=== PATIENT | male | born 1985 | race Hispanic/Latino ===

== ENCOUNTER 2025-05-02 18:09 | Inpatient (IN) | payer OTHER ==
[~2025-05-02] VITALS: Ht 177.8 cm; Wt 101.6 kg
[2025-05-02 18:32] LABS: IMMATURE GRANULOCYTE ABSOLUTE 0.02 K/uL (0-1); NUCLEATED RED BLOOD CELLS 0.0 % (0.0-0.19); PLATELET COUNT (AUTO) 183 K/uL (130-400); RED BLOOD CELL COUNT(AUTO) 4.94 MIL/uL (4.50-6.20); RED CELL DISTRIBUTION WIDTH 11.5 % (11.0-15.5); WHITE BLOOD COUNT (AUTO) 11.7 K/uL (4.8-10.8)
[2025-05-02 18:42] LABS: CREATININE 0.9 mg/dL (0.5-1.3); GLOMERULAR FILTR. RATE CALC 113.0 mL/min (>90); GLUCOSE,RANDOM 108.0 mg/dL (70-105); SODIUM SERUM 137.0 mmol/L (136-145); UREA NITROGEN, BLOOD 14.0 mg/dL (7-18)
[2025-05-02 18:46] LABS: ASPARTATE AMINOTRANSFERASE 28.0 U/L (10-37); TOTAL PROTEIN, SERUM 7.8 g/dL (6.0-8.3)
--- NOTE | 2025-05-02 18:47 | ERN ---
ED Note History of Present Illness Stated Complaint: LOWER ABD PAIN Chief Complaint: Abdominal Pain Time Seen by MD: 18:10 Time Seen by Midlevel: 18:15 Dictation: 39-year-old male coming in complaining of severe lower abdominal pain. Patient states this has been going on today. States this morning he has been 2 hours trying to have a bowel movement and was in a excruciating pain. States last BM was this morning but had a very difficult time. Denies having any nausea or vomiting or fever. Allergies: Coded Allergies: Penicillins (Unverified Allergy, Unknown, 05/02/25) Past Medical History Past Medical History: No Pertinent History Surgical History: None Review of System Dictation Constitutional: Negative for fever,chills, and weight loss Eyes: Negative for injury, pain,redness, and discharge ENT: Negative for injury,pain or swelling Cardiovascular: Negative for chest pain, palpitations, and edema Respiratory: Negative for shortness of breath, cough, and wheezing, Abdomen/GI: Complaining of bilateral lower abdominal pain Back: Negative for injury and pain : Negative for injury, bleeding and discharge MS/Extremity: Negative for injury and deformity Skin: Negative for rash, and discoloration Neuro: Negative for headache, weakness, numbness, tingling, and seizure Psych: Negative for suicide ideation, homicidal ideation, and hallucinations Review of Systems: was completed Initial Vital Sign VS Vital Signs Date Time Temp Pulse Resp B/P (MAP) Pulse Ox O2 Delivery O2 Flow Rate FiO2 05/02/25 18:10 97.9 79 16 134/80 98 Room Air 0 Physical Exam Dictation General: awake, alert, NAD Head/Face: Normocephalic, atraumatic Eyes: PERRL, EOMI, vision at baseline ENT: oral cavity clear, TMs clear, no signs of infection Neck: Trachea midline, supple, no nuchal rigidity Cardiovascular: RRR, normal S1/S2, No MRGs, no JVD Respiratory: CTAB, no respiratory distress, No rales or wheezes Abdomen: Soft, tenderness to bilateral lower quadrant, non-distended, normal bowel sounds, no guarding or rebound. Skin: Warm, dry, normal turgor, no rash MS/Extremity: Pulses equal, no cyanosis, neurovascular intact, FROM Neuro: COAx4, GCS 15, strength 5/5, CN 2-12 intact, normal cerebellar exam, normal gait, Psych: Normal behavior, mood, and affect normal Results (Laboratory/Radiology) Laboratory/Radiology Laboratory Tests Test 05/02/25 18:24 White Blood Count 11.7 K/uL (4.8-10.8) H Red Blood Count 4.94 MIL/uL (4.50-6.20) Hemoglobin 15.9 g/dL (14.0-18.0) Hematocrit 45.1 % (42-54) Mean Corpuscular Volume 91.3 fL (79-99) Mean Corpuscular Hemoglobin 32.2 pg (27.0-33.0) Mean Corpuscular Hemoglobin Concent 35.3 g/dL (32.0-36.0) Red Cell Distribution Width 11.5 % (11.0-15.5) Platelet Count 183 K/uL (130-400) Mean Platelet Volume 11.0 fL (7.5-10.5) H Immature Granulocyte % (Auto) 0.2 % (0-1) Neutrophils (%) (Auto) 89.0 % (40.0-77.0) H Lymphocytes (%) (Auto) 4.6 % (21.0-51.0) L Monocytes (%) (Auto) 5.6 % (3.0-13.0) Eosinophils (%) (Auto) 0.3 % (0.0-8.0) Basophils (%) (Auto) 0.3 % (0.0-5.0) Neutrophils # (Auto) 10.4 K/uL (1.8-7.7) H Lymphocytes # (Auto) 0.5 K/uL (1.0-4.8) L Monocytes # (Auto) 0.7 K/uL (0.1-1.0) Eosinophils # (Auto) 0.04 K/uL (0.00-0.70) Basophils # (Auto) 0.03 K/uL (0.00-0.20) Absolute Immature Granulocyte (auto 0.02 K/uL (0-1) Nucleated Red Blood Cells 0.0 % (0.0-0.19) White Cell Morphology Comment See comments Sodium Level 137 mmol/L (136-145) Potassium Level 4.1 mmol/L (3.5-5.1) Chloride Level 101 mmol/L (101-111) Carbon Dioxide Level 26 mmol/L (21-32) Blood Urea Nitrogen 14 mg/dL (7-18) Creatinine 0.9 mg/dL (0.5-1.3) Glomerular Filtration Rate Calc 113 mL/min (>90) Random Glucose 108 mg/dL (70-105) H Total Calcium 9.2 mg/dL (8.5-10.1) Total Bilirubin 0.7 mg/dL (0.2-1.0) Direct Bilirubin 0.2 mg/dL (0.0-0.3) Aspartate Amino Transf (AST/SGOT) 28 U/L (10-37) Alanine Aminotransferase (ALT/SGPT) 44 U/L (12-78) Alkaline Phosphatase 61 U/L (50-136) Total Protein 7.8 g/dL (6.0-8.3) Albumin 4.2 g/dL (3.5-5.0) Lipase 16 U/L (16-77) Labs Reviewed?: Yes CT Scan Comment: [place] [id number] [address] IMAGING REPORT Addendum PATIENT: CHERI GOODWIN MR#: [id number] : 1985 SEX: M AGE: 39 LOCATION: [facility] ORDER 17 STATUS: [facility] REPORT#: [id number] SERVICE 13 REASON: lower abdominal pain ORDERING PHYSICIAN: AGUSTIN LEACH CNP PROCEDURE: ABD PEL WO - CT ABDOMEN/PELVIS W/O CONTRAST ADDENDUM REPORT ADDENDUM: Results were shared by telephone at 08:52 PM EST on 05-02-2025 and acknowledged by Agustin Almonte /[place] EXAM: CT Abdomen and Pelvis Without IV contrast CLINICAL HISTORY: lower abdominal pain TECHNIQUE: Axial computed tomography images of the abdomen and pelvis without intravenous contrast. CONTRAST: No IV contrast. COMPARISON: None provided. FINDINGS: LUNG BASES: The lung bases appear clear. No pleural effusions are seen. LIVER: Unremarkable. GALLBLADDER AND BILE DUCTS: The gallbladder appears within normal limits. No radioopaque gallstones are seen. No biliary ductal dilatation is evident. PANCREAS: Unremarkable. SPLEEN: Unremarkable. ADRENAL GLANDS: Unremarkable. KIDNEYS, URETERS, AND BLADDER: The kidneys appear within normal limits. There is no hydronephrosis or hydroureter. No urinary calculi are seen. STOMACH AND BOWEL: Unremarkable appearance of the stomach and bowel. No evidence of bowel obstruction. No evidence suggesting enteritis or colitis. APPENDIX: The appendix is distended, measuring up to 1 cm, with wall thickening and moderate periappendiceal inflammatory changes. No collection or perforation. PERITONEUM: Trace amount of fluid in the pelvis. No free air. LYMPH NODES: No lymphadenopathy is evident. REPRODUCTIVE: Unremarkable as visualized. VASCULATURE: No evidence of abdominal aortic aneurysm. BONES: No aggressive appearing osseous lesion. No acute osseous pathology evident. IMPRESSION: Acute appendicitis. No collection or perforation. /[place] DICTATED BY: JANES GRSOS MD DATE: 05/02/252052 ELECTRONICALLY SIGNED BY: DATE: EXAM: CT Abdomen and Pelvis Without IV contrast CLINICAL HISTORY: lower abdominal pain TECHNIQUE: Axial computed tomography images of the abdomen and pelvis without intravenous contrast. CONTRAST: No IV contrast. COMPARISON: None provided. FINDINGS: LUNG BASES: The lung bases appear clear. No pleural effusions are seen. LIVER: Unremarkable. GALLBLADDER AND BILE DUCTS: The gallbladder appears within normal limits. No radioopaque gallstones are seen. No biliary ductal dilatation is evident. PANCREAS: Unremarkable. SPLEEN: Unremarkable. ADRENAL GLANDS: Unremarkable. KIDNEYS, URETERS, AND BLADDER: The kidneys appear within normal limits. There is no hydronephrosis or hydroureter. No urinary calculi are seen. STOMACH AND BOWEL: Unremarkable appearance of the stomach and bowel. No evidence of bowel obstruction. No evidence suggesting enteritis or colitis. APPENDIX: The appendix is distended, measuring up to 1 cm, with wall thickening and moderate periappendiceal inflammatory changes. No collection or perforation. PERITONEUM: Trace amount of fluid in the pelvis. No free air. LYMPH NODES: No lymphadenopathy is evident. REPRODUCTIVE: Unremarkable as visualized. VASCULATURE: No evidence of abdominal aortic aneurysm. BONES: No aggressive appearing osseous lesion. No acute osseous pathology evident. IMPRESSION: Acute appendicitis. No collection or perforation. /[place] DICTATED BY: JANES GROSS MD DATE: 05/02/252040 ELECTRONICALLY SIGNED BY: JANES GROSS MD DATE: 05/02/252040 ED Course ED Course Orders Procedure Category Date Status Time Cbc With Differential LAB 05/02/25 Complete 18:14 Basic Metabolic Panel LAB 05/02/25 Complete 18:14 Urinalysis Profile LAB 05/02/25 Logged 18:14 Hepatic Function Panel LAB 05/02/25 Complete 18:14 Lipase LAB 05/02/25 Complete 18:14 Ct Abdomen/Pelvis W/O CT 05/02/25 Resulted Contrast 18:14 Dicyclomine Hcl PHA 05/02/25 Complete (Bentyl 20mg Inj) 19:00 Ceftriaxone 2gm Vial PHA 05/02/25 Complete (Rocephin 2gm Inj) 20:00 General Surgery CONPHYS 05/02/25 Transmitted Consult 19:56 *Nursing CPOE 05/02/25 Transmitted Communication: 19:56 Nothing By Mouth DIET 05/03/25 Transmitted Breakfast 0.9%Nacl 1000ml (Ns PHA 05/02/25 In Process 1000ml) 19:59 Levofloxacin 500 PHA 05/02/25 In Process Mg/D5w 100 Ml 20:01 Morphine 4mg Syg PHA 05/02/25 Logged (Morphine 4mg Syg) 20:30 Ondansetron 4mg Inj PHA 05/02/25 Logged (Zofran 4mg Inj) 20:30 Admit Orders ADM 05/02/25 Transmitted 20:27 General Surgery CONPHYSVC 05/02/25 Transmitted Consult 20:27 Current Medications Medications (Trade) Dose Ordered Sig/Des Route PRN Reason Start Time Stop Time Status Last Admin Dose Admin Ceftriaxone Sodium (Rocephin 2gm Inj) 2 gm ONCE ONCE IVPB 05/02/25 20:00 05/02/25 20:02 DC Dicyclomine HCl (Bentyl 20mg Inj) 20 mg ONCE ONCE IM 05/02/25 19:00 05/02/25 19:01 DC Levofloxacin/ Dextrose 100 ml @ 100 mls/hr Q24H STAT IV 05/02/25 20:01 05/02/25 21:00 Morphine Sulfate (morPHINE 4MG SYG) 4 mg ONCE ONCE IVP 05/02/25 20:30 05/02/25 20:31 UNV Ondansetron HCl (zoFRAN 4MG INJ) 4 mg ONCE ONCE IVP 05/02/25 20:30 05/02/25 20:31 UNV Sodium Chloride 1,000 ml @ 100 mls/hr Q10H STAT IV 05/02/25 19:59 05/03/25 05:58 Vital Signs Date Time Temp Pulse Resp B/P (MAP) Pulse Ox O2 Delivery O2 Flow Rate FiO2 05/02/25 18:10 97.9 79 16 134/80 98 Room Air 0 Medical Decision Making MDM MDM: 39-year-old male coming in complaining of severe lower abdominal pain. Patient states this has started today. States this morning he has been 2 hours trying to have a bowel movement and was in a excruciating pain. States last BM was this morning but had a very difficult time. Denies having any nausea or vomiting or fever. Blood work is unremarkable. CT scan is showing acute appendicitis. General surgeon on-call notified, okay to consult, keep patient NPO and obtain consent for laparoscopic versus open appendectomy for tomorrow. Patient will be admitted to hospitalist team. 2000 Patient called multiple times out in the lobby to bring back for a room and IV and antibiotics. And no answer. Called patient's cell phone 3 times , no answer,i left a voicemail. Primary nurse also tried contacting patient and no answer States he had gone out for a walk and return to the ER lobby. Spoke to Samuel for hospitalist team. Okay to admit patient. Differential diagnosis: Constipation, appendicitis, urinary tract infection Rationale: Tests considered and ordered secondary to shared decision making include: labs, ECG and radiology Previous outside records reviewed: Old ER visits. Risk of complication and/or morbidity or mortality of patient management: None Medications-Per medication reconciliation Need for hospitalization: Patient does meet criteria for hospitalization. Need for emergency major/minor surgery: No There are no social concerns with this patient. Prescription drug management Prescriptions will include symptomatic care Patient's prior external medical records from other ER visits were reviewed by me as indicated. Prior testing and results from previous visits were reviewed. Prior tests were taken into account with medical decision making and resource utilization, independent historian/historians were used to obtain complete medical history. I independently interpreted the test that were performed, results were reviewed by me and considered findings on radiology if ordered. Medical management and examination interpretation discussions were had by me with other qualified healthcare professionals as indicated for the patient's care. DX & DISP Disposition: Inpatient Decision to Admit Date: May 02, 2025 Decision to Admit Time: 19:59 Departure Impression: Primary Impression: Appendicitis Condition: Stable I have reviewed the case, and I agree with, Diagnosis and Plan AGUSTIN LEACH CNP May 02, 2025 18:47
--- NOTE | 2025-05-02 19:41 | HMCIMG ---
EXAM: CT Abdomen and Pelvis Without IV contrast CLINICAL HISTORY: lower abdominal pain TECHNIQUE: Axial computed tomography images of the abdomen and pelvis without intravenous contrast. CONTRAST: No IV contrast. COMPARISON: None provided. FINDINGS: LUNG BASES: The lung bases appear clear. No pleural effusions are seen. LIVER: Unremarkable. GALLBLADDER AND BILE DUCTS: The gallbladder appears within normal limits. No radioopaque gallstones are seen. No biliary ductal dilatation is evident. PANCREAS: Unremarkable. SPLEEN: Unremarkable. ADRENAL GLANDS: Unremarkable. KIDNEYS, URETERS, AND BLADDER: The kidneys appear within normal limits. There is no hydronephrosis or hydroureter. No urinary calculi are seen. STOMACH AND BOWEL: Unremarkable appearance of the stomach and bowel. No evidence of bowel obstruction. No evidence suggesting enteritis or colitis. APPENDIX: The appendix is distended, measuring up to 1 cm, with wall thickening and moderate periappendiceal inflammatory changes. No collection or perforation. PERITONEUM: Trace amount of fluid in the pelvis. No free air. LYMPH NODES: No lymphadenopathy is evident. REPRODUCTIVE: Unremarkable as visualized. VASCULATURE: No evidence of abdominal aortic aneurysm. BONES: No aggressive appearing osseous lesion. No acute osseous pathology evident. IMPRESSION: Acute appendicitis. No collection or perforation. /[place]
--- NOTE | 2025-05-02 20:04 | NUR ---
CALLED IN ER LOBBY, NOT FOUND
--- NOTE | 2025-05-02 20:28 | HP ---
History of Present Illness Reason for Visit: abdominal pain History of Present Illness Mr. Saldaña is a 39-year-old male that was seen and examined today on 05/02/2025. Patient is a good historian of personal health Patient reports that he came to the emergency department with a chief complaint of abdominal pain. Onset was today. Location is right lower quadrant. Duration is on and off. Character is described as sharp. There was no alleviating factors. Symptoms are aggravated with defecation. Patient denies any associated nausea, vomiting, chest pain, shortness and breath. Today in the emergency department CBC unremarkable, chemistry unremarkable, CT of abdomen and pelvis suggest appendicitis. Emergency room physician contacted general surgery service on-call who requested patient be admitted under hospitalist service. Plan is for surgical evaluation Past Medical History ADDITIONAL PAST MEDICAL HISTORY: [Hypertension] SOCIAL HISTORY: [Patient does not use tobacco however he does use a nicotine vape and each vape lasts him one week. Patient drinks alcohol once a week usually eight beers every 12 hours each. Patient denies drug use. Patient lives with his , Dipika Vega. Patient is typically independent of all his ADLs. Patient denies difficulty pain is bills.] SURGICAL HISTORY: [Denies] Review of Systems General: No Fever, No Chills, No Night Sweats, No Fatigue, No Malaise, No Appetite, No Other HEENT: No Head Aches, No Visual Changes, No Eye Pain, No Ear Pain, No Dysphasia, No Sinus Congestion, No Post Nasal Drip, No Sore Throat, No Other Pulmonary: No Dyspnea, No Cough, No Pleuritic Chest Pain, No Other Cardiovascular: No: Chest Pain, Palpitations, Orthopnea, Paroxysmal Noc. Dyspnea, Edema, Lt Headedness, Other Gastrointestinal: Abdominal Pain; No: Nausea, Vomiting, Diarrhea, Constipation, Melena, Hematochezia, Other Genitourinary: No Dysuria, No Frequency, No Incontinence, No Hematuria, No Retention, No Other Musculoskeletal: No: other, neck pain, shoulder pain, arm pain, back pain, hand pain, leg pain, foot pain Skin: No Urticaria, No Rash, No Other Neurological: No: Weakness, Numbness, Incoordination, Change in speech, Confusion, Seizures, Other Allergies: Coded Allergies: Penicillins (Unverified Allergy, Unknown, 05/02/25) Exam Vital Signs Vital Signs Date Time Temp Pulse Resp B/P (MAP) Pulse Ox O2 Delivery O2 Flow Rate FiO2 05/02/25 18:10 97.9 79 16 134/80 98 Room Air 0 General Appearance: Alert, Oriented X3, Cooperative, mild distress HEENT: Atraumatic, EOMI Respiratory: Clear to auscultation, Normal air movement, NL respiratory effort Cardiovascular: Regular rate, Regular rhythm, Normal S1, Normal S2 Abdominal: Normal bowel sounds, Other (Positive right lower quadrant tenderness) Extremities: No edema Skin: No significant lesion Neuro: Normal gait, Normal speech, Strength at 5/5 X4 ext, Sensation intact, Cranial nerves 3-12 NL Psych/Mental Status: Mental status NL, Mood NL, Thoughts/Content NL Assessment/Plan ASSESSMENT: [ Appendicitis, POA] PLAN: [ Admit patient to medical floor as inpatient status. Patient will be followed by General surgery Service. Keep patient NPO. IV fluid maintenance therapy lactated Ringer's at 75 mL/HR. As needed analgesia with morphine. Check preprocedure labs, CBC, BMP, magnesium, phosphorus, PTT, UA, type and screen, EKG, CXR Empiric antibiotic therapy with Levaquin and Flagyl Patient is allergic to penicillin GI prophylaxis, famotidine DVT prophylaxis, Orestes's and SCDs avoid anticoagulation at this time due to impending surgical evaluation. ADVANCED CARE PLANNING 1. Which of the following were discussed? Hospice Care - Yes Therapeutic options - yes Advance Directives - Yes - patient states he does not have any advance directives in place at this time, however his can make decisions for him if he becomes unable. Other discussions - patient wishes to remain a full code at this time 2. Discussed with who? Patient 3. Voluntary nature of this service was explained to the patient? Yes 4. Amount of time spent - ___16 minutes____ 5. Reviewed by Physician? (if this service was performed by NPP) Yes This document was generated in part using voice recognition software, occasional wrong word or sound alike substitutions may have occurred due to the inherent limitations of voice recognition software. Read the chart carefully and recogn ize using context, where the substitutions have occurred. Although every effort was made to edit the content, booster pump oiler and typing errors may occur ATTESTATION BY PHYSICIAN I have seen and examined the patient. I reviewed the documentation, medical d ecision making, and treatment plan as noted by the mid-level provider above. I agree with the findings and plan of care. ] ALANA MUÑOZ [facility] [place] May 02, 2025 20:28
[2025-05-02] MEDS: 0.9%NACL 1000ML 1,000 ML IV STA (20:59)
[2025-05-02] MEDS: DICYCLOMINE 20MG (10MG/ML) AMP IM ONE (20:59)
[2025-05-02 21:38] LABS: APPEARANCE,URINE CLEAR (CLEAR); GLUCOSE, URINE (UA) NEGATIVE (NEGATIVE); LEUKOCYTE ESTERASE ,URINE NEGATIVE Leu/uL (NEGATIVE); NITRATE,URINE NEGATIVE (NEGATIVE); OCCULT BLOOD,URINE NEGATIVE (NEGATIVE)
[2025-05-02 21:40] LABS: ADD UA MICROSCOPIC NO
[2025-05-02] MEDS ORDERED: LACTULOSE 20 GM/30 ML UDCUP PO PRN (22:00)
[2025-05-02] MEDS: LACTATED RINGERS 1000ML 1,000 ML IV SCH (23:23)
[2025-05-03] VITALS (25 sets, daily range): BP systolic 122–165; BP diastolic 70–102; PULSE 63–95; RESP 14–18; TEMP 97–208.4; O2SAT 96–97
[2025-05-03 07:02] LABS: IMMATURE GRANULOCYTE ABSOLUTE 0.02 K/uL (0-1); NUCLEATED RED BLOOD CELLS 0.0 % (0.0-0.19); PLATELET COUNT (AUTO) 173 K/uL (130-400); RED BLOOD CELL COUNT(AUTO) 4.75 MIL/uL (4.50-6.20); RED CELL DISTRIBUTION WIDTH 11.6 % (11.0-15.5); WHITE BLOOD COUNT (AUTO) 8.5 K/uL (4.8-10.8)
[2025-05-03 07:15] LABS: INR 1.06 (0.85-1.15)
--- NOTE | 2025-05-03 07:17 | EKG ---
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
[2025-05-03 07:21] LABS: CREATININE 1.1 mg/dL (0.5-1.3); GLOMERULAR FILTR. RATE CALC 89.0 mL/min (>90); GLUCOSE,RANDOM 107.0 mg/dL (70-105); PHOSPHORUS 2.7 mg/dL (2.5-4.9); SODIUM SERUM 138.0 mmol/L (136-145); UREA NITROGEN, BLOOD 9.0 mg/dL (7-18)
[2025-05-03] MEDS: FAMOTIDINE 20MG VIAL IV SCH (09:01)
--- NOTE | 2025-05-03 12:18 | NUR ---
DCP:HOME Pt states that he currently lives alone in his home. Pt denies having any DME, home health, or provider services. Pt states that he is able to complete ADLs independently. PCP is Dr. Frederick Michaud (yellow team) and uses the [facility] for any RX needs. At DC pt will want to go home and family can assist with transportation.
[2025-05-03] MEDS ORDERED: LIDOCAINE PF 100MG/5ML (2%) SYRINGE 5ML ONE (13:31)
[2025-05-03] MEDS ORDERED: MIDAZOLAM HCL 1 MG/ML 2ML VIAL ONE (13:31)
[2025-05-03] MEDS ORDERED: SUCCINYLCHOLINE CHLORIDE 20 MG/ML 10 ML VIAL ONE (13:35)
[2025-05-03] MEDS: LACTATED RINGERS 1000ML 1,000 ML IV ONE (13:51)
--- NOTE | 2025-05-03 14:18 | CONS ---
GENERAL SURGERY CONSULTATION NOTE Date/Time Patient Seen: 05/03/2025 1:00 p.m. Requesting Physician: Hospitalist Reason for Consultation: Acute appendicitis History of Present Illness: This is a 39-year-old male otherwise healthy who presented to the emergency department for lower abdominal pain that began yesterday morning. Patient reports he has never had similar pain. The pain was severe. He had associated nausea but no vomiting. No fevers chills or diarrhea. Pain was persistent and located in the right lower quadrant. In the ED the patient was afebrile and hemodynamically stable. He had a slight leukocytosis. CT scan of the abdomen and pelvis showed an enlarged and indurated appendix with evidence of periappendiceal fat stranding consistent with acute appendicitis. The patient was admitted to the hospitalist service and started on IV antibiotics. Surgery was consulted for acute appendicitis. At the time of my interview patient reports that symptoms have not changed. Pain persists in his located in the right lower quadrant. Past Medical History: None Past Surgical History: None Family History: None Social History: Nonsmoker Nondrinker Current Medications Medications (Trade) Dose Ordered Sig/Des Route Start Time Stop Time Status Last Admin Dose Admin Famotidine (Pepcid 20mg Vial) 20 mg DAILY IV 05/03/25 09:00 06/02/25 08:59 05/03/25 09:01 20 MG Lactated Ringer's 1,000 ml @ 75 mls/hr [id number] IV 05/02/25 22:00 06/01/25 21:59 05/02/25 23:23 75 MLS/HR Levofloxacin/ Dextrose 100 ml @ 100 mls/hr Q24H STAT IV 05/02/25 20:01 05/02/25 21:00 DC 05/02/25 20:59 100 MLS/HR Levofloxacin/ Dextrose (LEvaquIN 750 MG/ D5W 150 ML) 750 mg Q24H IV 05/02/25 22:00 05/02/25 23:27 DC Levofloxacin/ Dextrose (LEvaquIN 750 MG/ D5W 150 ML) 750 mg Q24H IV 05/03/25 20:00 05/13/25 19:59 Metronidazole/ Sodium Chloride 100 ml @ 100 mls/hr Q8H6 IVPB 05/02/25 22:00 05/12/25 21:59 05/03/25 05:15 100 MLS/HR Sodium Chloride 1,000 ml @ 100 mls/hr Q10H STAT IV 05/02/25 19:59 05/03/25 05:58 DC 05/02/25 20:59 100 MLS/HR Review of Systems: CONST: No fever, fatigue, or weight changes. EYES: No recent vision problems. ENT: No congestion, ear pain, or sore throat. C/V: No chest pain, palpitations, or edema. RESP: No cough, congestion, wheezing or shortness of breath. GI: Positive for abdominal pain and nausea. Negative for vomiting, constipation, and diarrhea : No incontinence or dysuria. SKIN: No rash. NEURO: No headache, focal numbness or weakness, dizziness, or seizures. PSYCH: No depression or anxiety. HEME: No abnormal bruising or bleeding. LYMPH: No swollen glands. Physical Examination: GENERAL: No acute distress. HEAD: Normal with no signs of head trauma. EYES: PERRLA, EOMI, conjunctiva and sclera normal. LUNGS: Respirations nonlabored HEART: Regular rate and rhyth ABD: Soft, nondistended, focally tender to palpation in the right lower quadrant, no rebound, no guarding : Not examined LYMPH: No lymphadenopathy noted. EXT: No clubbing, cyanosis or edema. SKIN: No rashes or lesions noted. NEURO: Awake, alert, and oriented x3. No focal sensory or strength deficits noted. Vital Signs (last 8hr) Date Time Temp Pulse Resp B/P (MAP) Pulse Ox O2 Delivery O2 Flow Rate FiO2 05/03/25 13:45 208.4 72 17 133/82 96 Room Air 0.0 05/03/25 12:00 98.1 72 17 133/82 96 Room Air 05/03/25 08:00 98.1 70 17 126/75 96 Room Air Laboratory: Hematology Labs: Test 05/03/25 06:55 05/02/25 18:24 Range/Units White Blood Count 8.5 # 4.8-10.8 K/uL Red Blood Count 4.75 4.50-6.20 MIL/uL Hemoglobin 15.2 14.0-18.0 g/dL Hematocrit 43.2 42-54 % Mean Corpuscular Volume 90.9 79-99 fL Mean Corpuscular Hemoglobin 32.0 27.0-33.0 pg Mean Corpuscular Hemoglobin Concent 35.2 32.0-36.0 g/dL Red Cell Distribution Width 11.6 11.0-15.5 % Platelet Count 173 130-400 K/uL Mean Platelet Volume 11.2 H 7.5-10.5 fL Immature Granulocyte % (Auto) 0.2 0-1 % Neutrophils (%) (Auto) 79.1 H 40.0-77.0 % Lymphocytes (%) (Auto) 12.7 L 21.0-51.0 % Monocytes (%) (Auto) 7.2 3.0-13.0 % Eosinophils (%) (Auto) 0.6 0.0-8.0 % Basophils (%) (Auto) 0.2 0.0-5.0 % Neutrophils # (Auto) 6.7 1.8-7.7 K/uL Lymphocytes # (Auto) 1.1 1.0-4.8 K/uL Monocytes # (Auto) 0.6 0.1-1.0 K/uL Eosinophils # (Auto) 0.05 0.00-0.70 K/uL Basophils # (Auto) 0.02 0.00-0.20 K/uL Absolute Immature Granulocyte (auto 0.02 0-1 K/uL Nucleated Red Blood Cells 0.0 0.0-0.19 % White Cell Morphology Comment See comments Chemistry Labs: Test 05/03/25 06:55 05/02/25 18:24 Range/Units Sodium Level 138 136-145 mmol/L Potassium Level 3.7 3.5-5.1 mmol/L Chloride Level 101 101-111 mmol/L Carbon Dioxide Level 31 21-32 mmol/L Blood Urea Nitrogen 9 7-18 mg/dL Creatinine 1.1 0.5-1.3 mg/dL Glomerular Filtration Rate Calc 89 >90 mL/min Random Glucose 107 H 70-105 mg/dL Hemoglobin A1c 5.0 4.0-6.0 % Estimated Average Glucose (eAG) 97 70-126 mg/dL Total Calcium 8.9 8.5-10.1 mg/dL Phosphorus Level 2.7 2.5-4.9 mg/dL Magnesium Level 1.80 1.80-2.40 mg/dL Thyroid Stimulating Hormone (TSH) 4.26 H 0.36-3.74 uIU/mL Total Bilirubin 0.7 0.2-1.0 mg/dL Direct Bilirubin 0.2 0.0-0.3 mg/dL Aspartate Amino Transf (AST/SGOT) 28 10-37 U/L Alanine Aminotransferase (ALT/SGPT) 44 12-78 U/L Alkaline Phosphatase 61 50-136 U/L Total Protein 7.8 6.0-8.3 g/dL Albumin 4.2 3.5-5.0 g/dL Lipase 16 16-77 U/L Coagulation Labs: Test 05/03/25 06:55 Range/Units Prothrombin Time 11.2 9.6-11.6 SEC Prothromb Time International Ratio 1.06 0.85-1.15 Activated Partial Thromboplast Time 28.6 26.3-35.5 SEC Diagnostics / Radiology: PATIENT: CHERI GOODWIN MR#: [id number] : 1985 SEX: M AGE: 39 LOCATION: [facility] ORDER 17 STATUS: [facility] REPORT#: [id number] SERVICE 13 REASON: lower abdominal pain ORDERING PHYSICIAN: AGUSTIN LEACH CNP PROCEDURE: ABD PEL WO - CT ABDOMEN/PELVIS W/O CONTRAST ADDENDUM REPORT ADDENDUM: Results were shared by telephone at 08:52 PM EST on 05-02-2025 and acknowledged by Agustin Almonte /[facility] EXAM: CT Abdomen and Pelvis Without IV contrast CLINICAL HISTORY: lower abdominal pain TECHNIQUE: Axial computed tomography images of the abdomen and pelvis without intravenous contrast. CONTRAST: No IV contrast. COMPARISON: None provided. FINDINGS: LUNG BASES: The lung bases appear clear. No pleural effusions are seen. LIVER: Unremarkable. GALLBLADDER AND BILE DUCTS: The gallbladder appears within normal limits. No radioopaque gallstones are seen. No biliary ductal dilatation is evident. PANCREAS: Unremarkable. SPLEEN: Unremarkable. ADRENAL GLANDS: Unremarkable. KIDNEYS, URETERS, AND BLADDER: The kidneys appear within normal limits. There is no hydronephrosis or hydroureter. No urinary calculi are seen. STOMACH AND BOWEL: Unremarkable appearance of the stomach and bowel. No evidence of bowel obstruction. No evidence suggesting enteritis or colitis. APPENDIX: The appendix is distended, measuring up to 1 cm, with wall thickening and moderate periappendiceal inflammatory changes. No collection or perforation. PERITONEUM: Trace amount of fluid in the pelvis. No free air. LYMPH NODES: No lymphadenopathy is evident. REPRODUCTIVE: Unremarkable as visualized. VASCULATURE: No evidence of abdominal aortic aneurysm. BONES: No aggressive appearing osseous lesion. No acute osseous pathology evident. IMPRESSION: Acute appendicitis. No collection or perforation. /[facility] DICTATED BY: JANES GROSS MD DATE: 05/02/252052 ELECTRONICALLY SIGNED BY: DATE: EXAM: CT Abdomen and Pelvis Without IV contrast CLINICAL HISTORY: lower abdominal pain TECHNIQUE: Axial computed tomography images of the abdomen and pelvis without intravenous contrast. CONTRAST: No IV contrast. COMPARISON: None provided. FINDINGS: LUNG BASES: The lung bases appear clear. No pleural effusions are seen. LIVER: Unremarkable. GALLBLADDER AND BILE DUCTS: The gallbladder appears within normal limits. No radioopaque gallstones are seen. No biliary ductal dilatation is evident. PANCREAS: Unremarkable. SPLEEN: Unremarkable. ADRENAL GLANDS: Unremarkable. KIDNEYS, URETERS, AND BLADDER: The kidneys appear within normal limits. There is no hydronephrosis or hydroureter. No urinary calculi are seen. STOMACH AND BOWEL: Unremarkable appearance of the stomach and bowel. No evidence of bowel obstruction. No evidence suggesting enteritis or colitis. APPENDIX: The appendix is distended, measuring up to 1 cm, with wall thickening and moderate periappendiceal inflammatory changes. No collection or perforation. PERITONEUM: Trace amount of fluid in the pelvis. No free air. LYMPH NODES: No lymphadenopathy is evident. REPRODUCTIVE: Unremarkable as visualized. VASCULATURE: No evidence of abdominal aortic aneurysm. BONES: No aggressive appearing osseous lesion. No acute osseous pathology evident. IMPRESSION: Acute appendicitis. No collection or perforation. /[facility] DICTATED BY: JANES GROSS MD DATE: 05/02/252040 ELECTRONICALLY SIGNED BY: JANES GROSS MD DATE: 05/02/252040 Assessment: This is a 39-year-old male with right lower quadrant abdominal pain likely due to acute appendicitis. Plan: Patient has been admitted to the hospitalist service started on IV antibiotics and IV fluid resuscitation. I recommend laparoscopic possible open appendectomy. I discussed the procedure in detail with the patient. All questions were answered. The patient expressed understanding and agreement with the plan. NEIL PEREZ DO May 03, 2025 14:18
[2025-05-03] MEDS: LIDOCAINE HCL 1% 20 ML VIAL ONE (14:41)
[2025-05-03] MEDS: LIDOCAINE HCL 1% 10 ML VIAL ONE (14:41)
[2025-05-03] MEDS ORDERED: GLYCOPYRROLATE 0.2 MG/ML 5 ML VIAL ONE (15:05)
[2025-05-03] MEDS ORDERED: NEOSTIGMINE METHYLSULFATE 1MG/ML IV ONE (15:05)
--- NOTE | 2025-05-03 15:22 | OP ---
Operative Note: DATE OF PROCEDURE: 05/03/25 SURGEON: NEIL PEREZ DO [employer] MANAGER: None ANESTHESIA: General ANESTHESIOLOGIST/HIGHWAY RESEARCH ENGINEER: YESSICA Nielsen PREOPERATIVE DIAGNOSIS: Acute appendicitis POSTOPERATIVE DIAGNOSIS: Acute uncomplicated appendicitis SYNOPSIS: None PROCEDURE: Laparoscopic appendectomy ESTIMATED BLOOD LOSS: 5 cc INDICATIONS: This is a 39-year-old male with 24 hours of right lower quadrant abdominal pain. He had a mild leukocytosis and a CT scan showing an enlarged and indurated appendix with surrounding periappendiceal fat stranding consistent with acute appendicitis. On physical exam the patient was focally tender to palpation in the right lower quadrant. I recommended laparoscopic appendectomy. I discussed the procedure in detail with the patient in his significant other is at the bedside. All questions were answered. Both expressed understanding and agreement with the plan. DESCRIPTION OF PROCEDURE: Patient was placed on the operating table in the supine position with the left arm tucked. After being sedated and intubated by anesthesia the abdomen was prepped and draped in the usual sterile fashion. Patient is on antibiotics from the floor next dose not due for 3 hours. A transverse supraumbilical skin incision was made and dissection was carried down to the level of fascia. The fascia was grasped with 2 Denise clamps and elevated. The fascia was incised and the peritoneum was entered bluntly. A 12 mm balloon port was inserted into the peritoneal cavity and the abdomen was insufflated. The patient tolerated insufflation well. A laparoscopic camera was inserted into the abdomen and all 4 quadrants were inspected. No gross abnormalities apparent and no evidence of inadvertent injury apparent. Two 5 mm ports were then placed in the suprapubic region and left lower quadrant under direct visualization. The patient was placed in Trendelenburg position with right side up. The appendix was identified and found to be indurated and dilated with minimal adhesions to surrounding fat. The mesoappendix was divided using the Vuoyant vessel sealing device. The base of the appendix was transected using a blue load laparoscopic stapling device. The staple line was inspected and found to be hemostatic. The appendix was placed into a laparoscopic bag. A moderate amount of turbid fluid was suctioned from the pelvis. The 5 mm ports were removed under direct visualization and no ongoing bleeding evident. The appendix was removed with the 12 mm port and handed off for routine pathology. The fascia of the 12 mm port site was approximated using 0 Vicryl in a single [id number] suture. The skin was approximated using skin tutu. Wounds were dressed with gauze and tape. All instrument, needle, and sponge counts were correct at the end of the procedure. The patient tolerated the procedure well. The patient was aroused from sedation extubated and taken to the postanesthesia care unit in good condition. NEIL PEREZ DO May 03, 2025 15:22
[2025-05-03] MEDS ORDERED: PROMETHAZINE HCL 25 MG/ML 1ML AMPULE IM PRN (16:00)
--- NOTE | 2025-05-03 16:41 | PN ---
[facility] PROGRESS NOTE Date of Service: May 03, 2025 Time of Service: 16:20 History of Present Illness Mr. Goodwin is a 39-year-old male who is a good historian of personal health Patient reports that he came to the emergency department with a chief complaint of abdominal pain. Onset was today. Location is right lower quadrant. Duration is on and off. Character is described as sharp. There was no allevi ating factors. Symptoms are aggravated with defecation. Patient denies any associated nausea, vomiting, chest pain, shortness and breath. Today in the emergency department CBC unremarkable, chemistry unremarkable, CT of abdomen and pelvis suggest appendicitis. Emergency room physician contacted general surgery service on-call who requested patient be admitted under hospitalist service. Plan is for surgical evaluation SUBJECTIVE: 05/03/25: Patient was seen and evaluated in room 124, Patient was alert, awake and orientedX3. Patient complaints of sharp right lower quadrant pain radiating to left lower quadrant pain. Pain is not relieved by defecations. Patient denies any nausea, vomiting, chest pain, shortness and breath. CT abdomen was ordered, which show findings of acute appendicitis. Pertinent labs- WBC-11.7, Lipase-16, T. bilirubin 0.7, AST - 28, ALT-44, ALP-61 REVIEW OF SYSTEMS CONSTITUTIONAL: Denies fevers, chills, or night sweats. No unintentional weight loss reported. NEUROLOGICAL: Denies headache, amaurosis fugax, motor weakness, sensory deficit, vertigo/spinning sensation, gait abnormalities, or tremors. ENT: No hearing loss, otalgia, otorrhea, rhinitis, rhinorrhea, hoarseness, or sore throat. CARDIOVASCULAR: Denies any exertional angina, dyspnea on exertion, orthopnea, paroxysmal nocturnal dyspnea, palpitations, life-threatening arrhythmias, claudication. PULMONARY: Denies any shortness of breath, cough, phlegm/sputum, hemoptysis, pleuritic chest pain. SLEEP: Denies morning headaches, daytime somnolence or napping. Denies difficulty falling asleep, staying asleep, waking from sleep. Denies knowledge of snoring. GASTROINTESTINAL: Denies any type of dysphagia to either liquids or solids. Denies nausea, vomiting, pyrosis, early satiety, abdominal pain, diarrhea, constipation, or changes in stool consistency or caliber. Denies coffee-ground emesis, hematemesis, hematochezia, or melanotic stools. GENITOURINARY: Denies frequency, urgency, nocturia, hematuria or incontinence (Storage/Irritative symptoms.) Low urinary stream, straining to void, urinary intermittency or hesitancy, splitting of the voiding stream, terminal dribbling. ENDOCRINOLOGIC: Denies polyuria, polydipsia, polyphagia or heat/cold intolerances. HEMATOLOGIC: Denies thrombophilia/previous clots, or coagulopathy/bleeding di sorders. ONCOLOGIC: Denies personal history of malignancy. DERMATOLOGIC: Denies rashes or pruritus. PSYCHIATRIC: Denies any suicidal or homicidal ideation. Denies hallucinations. PHYSICAL EXAM GENERAL APPEARANCE: The patient is awake, alert, and oriented, in no acute cardiopulmonary distress. NEUROLOGICAL: Cranial nerves II-XII grossly intact. Motor is 5/5 in bilateral upper and lower extremities proximal to distal. No sensory deficits. HEENT: Face is symmetric. Pupils are equal and reactive. Extraocular movements are intact. NECK: Supple. No JVD. No thyromegaly. No submental, submandibular, pre- /postauricular, occipital or supraclavicular lymphadenopathy. CHEST: Normal chest expansion. No Telemetry. LUNGS: Absence of any rales, rhonchi or any wheezing. CARDIOVASCULAR: Regular. S1 and S2 normal. No appreciable rubs, murmurs or gallops. ABDOMEN: Tenderness in right lower quadrant and left lower quadrant quadrant of abdomen, nondistended. There is no rebound, voluntary guarding, or rigidity. : Deferred. No Bray. EXTREMITIES: Non-edematous and not cyanotic. No clubbing. Good capillary refill. SKIN: No skin breakdown. Vital Signs (last 8hr) Date Time Temp Pulse Resp B/P (MAP) Pulse Ox O2 Delivery O2 Flow Rate FiO2 05/03/25 16:05 64 14 138/75 98 Nasal Cannula 2.0 05/03/25 16:00 64 17 149/78 97 Nasal Cannula 2.0 05/03/25 15:55 65 16 149/79 97 Nasal Cannula 2.0 05/03/25 15:50 63 15 145/77 94 Nasal Cannula 2.0 05/03/25 15:45 64 18 150/80 94 Nasal Cannula 2.0 05/03/25 15:40 63 17 137/81 95 Nasal Cannula 2.0 05/03/25 15:35 64 16 148/80 96 Nasal Cannula 2.0 05/03/25 15:30 68 18 155/87 97 Nasal Cannula 2.0 05/03/25 15:25 81 18 165/87 97 Nasal Cannula 2.0 05/03/25 15:20 97.0 91 18 164/89 99 Nonrebreathing Mask 10.0 05/03/25 13:45 208.4 72 17 133/82 96 Room Air 0.0 05/03/25 12:00 98.1 72 17 133/82 96 Room Air LABS: Laboratory: Test 05/03/25 06:55 05/02/25 21:25 05/02/25 18:24 Range/Units White Blood Count 8.5 # 4.8-10.8 K/uL Red Blood Count 4.75 4.50-6.20 MIL/uL Hemoglobin 15.2 14.0-18.0 g/dL Hematocrit 43.2 42-54 % Mean Corpuscular Volume 90.9 79-99 fL Mean Corpuscular Hemoglobin 32.0 27.0-33.0 pg Mean Corpuscular Hemoglobin Concent 35.2 32.0-36.0 g/dL Red Cell Distribution Width 11.6 11.0-15.5 % Platelet Count 173 130-400 K/uL Mean Platelet Volume 11.2 H 7.5-10.5 fL Immature Granulocyte % (Auto) 0.2 0-1 % Neutrophils (%) (Auto) 79.1 H 40.0-77.0 % Lymphocytes (%) (Auto) 12.7 L 21.0-51.0 % Monocytes (%) (Auto) 7.2 3.0-13.0 % Eosinophils (%) (Auto) 0.6 0.0-8.0 % Basophils (%) (Auto) 0.2 0.0-5.0 % Neutrophils # (Auto) 6.7 1.8-7.7 K/uL Lymphocytes # (Auto) 1.1 1.0-4.8 K/uL Monocytes # (Auto) 0.6 0.1-1.0 K/uL Eosinophils # (Auto) 0.05 0.00-0.70 K/uL Basophils # (Auto) 0.02 0.00-0.20 K/uL Absolute Immature Granulocyte (auto 0.02 0-1 K/uL Nucleated Red Blood Cells 0.0 0.0-0.19 % Prothrombin Time 11.2 9.6-11.6 SEC Prothromb Time International Ratio 1.06 0.85-1.15 Activated Partial Thromboplast Time 28.6 26.3-35.5 SEC Sodium Level 138 136-145 mmol/L Potassium Level 3.7 3.5-5.1 mmol/L Chloride Level 101 101-111 mmol/L Carbon Dioxide Level 31 21-32 mmol/L Blood Urea Nitrogen 9 7-18 mg/dL Creatinine 1.1 0.5-1.3 mg/dL Glomerular Filtration Rate Calc 89 >90 mL/min Random Glucose 107 H 70-105 mg/dL Hemoglobin A1c 5.0 4.0-6.0 % Estimated Average Glucose (eAG) 97 70-126 mg/dL Total Calcium 8.9 8.5-10.1 mg/dL Phosphorus Level 2.7 2.5-4.9 mg/dL Magnesium Level 1.80 1.80-2.40 mg/dL Thyroid Stimulating Hormone (TSH) 4.26 H 0.36-3.74 uIU/mL Urine Color COLORLESS YELLOW Urine Appearance CLEAR CLEAR Urine pH 7.0 5.0-8.0 Urine Specific [place] 1.003 1.001-1.031 Urine Protein NEGATIVE NEGATIVE mg/dL Urine Glucose (UA) NEGATIVE NEGATIVE mg/dL Urine Ketones NEGATIVE NEGATIVE mg/dL Urine Occult Blood NEGATIVE NEGATIVE Urine Nitrate NEGATIVE NEGATIVE Urine Bilirubin NEGATIVE NEGATIVE mg/dL Urine Urobilinogen 0.2 0.2-1.0 mg/dL Urine Leukocyte Esterase NEGATIVE NEGATIVE Chani/uL White Cell Morphology Comment See comments Total Bilirubin 0.7 0.2-1.0 mg/dL Direct Bilirubin 0.2 0.0-0.3 mg/dL Aspartate Amino Transf (AST/SGOT) 28 10-37 U/L Alanine Aminotransferase (ALT/SGPT) 44 12-78 U/L Alkaline Phosphatase 61 50-136 U/L Total Protein 7.8 6.0-8.3 g/dL Albumin 4.2 3.5-5.0 g/dL Lipase 16 16-77 U/L Current Medications Medications (Trade) Dose Ordered Sig/Des Route PRN Reason Start Time Stop Time Status Last Admin Dose Admin Acetaminophen (TYLenol 325MG TAB) 650 mg Q6H PRN PO TEMPERATURE GREATER THAN 101.5 05/02/25 22:00 06/01/25 21:59 Famotidine (Pepcid 20mg Vial) 20 mg DAILY IV 05/03/25 09:00 06/02/25 08:59 05/03/25 09:01 20 MG Fentanyl Citrate (FENTanyl CITRate PF 50 MCG/ 1 ML 2ML VIAL) 25 mcg Q5MIN PRN IVP PAIN LEVEL 7 TO 10 05/03/25 16:00 05/03/25 16:18 DC 05/03/25 15:58 25 MCG Hydralazine HCl (APRESOLine 20MG INJ) 10 mg Q6H PRN IV For:SBP above 160;DBP above 90 05/02/25 22:00 06/01/25 21:59 Hydromorphone HCl (DiLAUDid 1MG INJ) 0.5 mg Q4H PRN IVP SEVERE PAIN (7-10) 05/03/25 11:30 05/08/25 11:29 Ketorolac Tromethamine (toRADol) 30 mg AD PRN IV PAIN LEVEL 1 TO 3 05/03/25 16:00 05/03/25 16:18 DC Lactated Ringer's 1,000 ml @ 75 mls/hr [id number] IV 05/02/25 22:00 06/01/25 21:59 05/02/25 23:23 75 MLS/HR Lactulose (Constulose 20gm/ 30ml Udcup) 20 gm BID PRN PO CONSTIPATION 05/02/25 22:00 06/01/25 21:59 Levofloxacin/ Dextrose 100 ml @ 100 mls/hr Q24H STAT IV 05/02/25 20:01 05/02/25 21:00 DC 05/02/25 20:59 100 MLS/HR Levofloxacin/ Dextrose (LEvaquIN 750 MG/ D5W 150 ML) 750 mg Q24H IV 05/02/25 22:00 05/02/25 23:27 DC Levofloxacin/ Dextrose (LEvaquIN 750 MG/ D5W 150 ML) 750 mg Q24H IV 05/03/25 20:00 05/13/25 19:59 Metoclopramide HCl (regLAN 10MG IV) 10 mg AD PRN IVP NAUSEA/VOMITING 05/03/25 16:00 05/03/25 16:00 DC 05/03/25 15:59 10 MG Metronidazole/ Sodium Chloride 100 ml @ 100 mls/hr Q8H6 IVPB 05/02/25 22:00 05/12/25 21:59 05/03/25 05:15 100 MLS/HR Morphine Sulfate (morPHINE 2MG SYG) 2 mg AD PRN IVP PAIN LEVEL 4 TO 6 05/03/25 16:00 05/03/25 16:18 DC Morphine Sulfate (morPHINE 4MG SYG) 4 mg Q4H PRN IVP SEVERE PAIN (7-10) 05/02/25 22:00 05/03/25 11:25 DC 05/03/25 10:48 4 MG Naloxone HCl (NARcan 0.4mg/1 mL) 0.1 mg AD PRN IVP RESPIRATORY SYMPTOMS 05/03/25 16:00 05/03/25 16:18 DC Ondansetron HCl (zoFRAN 4MG INJ) 4 mg AD PRN IVP NAUSEA/VOMITING 05/03/25 16:00 05/03/25 16:18 DC Ondansetron HCl (zoFRAN 4MG INJ) 4 mg Q6H PRN IV NAUSEA/VOMITING 05/02/25 22:00 06/01/25 21:59 Promethazine HCl (Phenergan) 25 mg AD PRN IM NAUSEA/VOMITING 05/03/25 16:00 05/03/25 16:18 DC Sodium Chloride 1,000 ml @ 100 mls/hr Q10H STAT IV 05/02/25 19:59 05/03/25 05:58 DC 05/02/25 20:59 100 MLS/HR DIAGNOSTICS / RADIOLOGY: [place] [address] IMAGING REPORT Addendum PATIENT: CHERI GOODWIN MR#: [id number] : 1985 SEX: M AGE: 39 LOCATION: [facility] ORDER 17 STATUS: REG ER REPORT#: [id number] SERVICE 13 REASON: lower abdominal pain ORDERING PHYSICIAN: AGUSTIN LEACH CNP PROCEDURE: ABD PEL WO - CT ABDOMEN/PELVIS W/O CONTRAST ADDENDUM REPORT ADDENDUM: Results were shared by telephone at 08:52 PM EST on 05-02-2025 and acknowledged by Agustin Almonte /[place] EXAM: CT Abdomen and Pelvis Without IV contrast CLINICAL HISTORY: lower abdominal pain TECHNIQUE: Axial computed tomography images of the abdomen and pelvis without intravenous contrast. CONTRAST: No IV contrast. COMPARISON: None provided. FINDINGS: LUNG BASES: The lung bases appear clear. No pleural effusions are seen. LIVER: Unremarkable. GALLBLADDER AND BILE DUCTS: The gallbladder appears within normal limits. No radioopaque gallstones are seen. No biliary ductal dilatation is evident. PANCREAS: Unremarkable. SPLEEN: Unremarkable. ADRENAL GLANDS: Unremarkable. KIDNEYS, URETERS, AND BLADDER: The kidneys appear within normal limits. There is no hydronephrosis or hydroureter. No urinary calculi are seen. STOMACH AND BOWEL: Unremarkable appearance of the stomach and bowel. No evidence of bowel obstruction. No evidence suggesting enteritis or colitis. APPENDIX: The appendix is distended, measuring up to 1 cm, with wall thickening and moderate periappendiceal inflammatory changes. No collection or perforation. PERITONEUM: Trace amount of fluid in the pelvis. No free air. LYMPH NODES: No lymphadenopathy is evident. REPRODUCTIVE: Unremarkable as visualized. VASCULATURE: No evidence of abdominal aortic aneurysm. BONES: No aggressive appearing osseous lesion. No acute osseous pathology evident. IMPRESSION: Acute appendicitis. No collection or perforation. /[place] DICTATED BY: JANES GROSS MD DATE: 05/02/252052 ELECTRONICALLY SIGNED BY: DATE: EXAM: CT Abdomen and Pelvis Without IV contrast CLINICAL HISTORY: lower abdominal pain TECHNIQUE: Axial computed tomography images of the abdomen and pelvis without intravenous contrast. CONTRAST: No IV contrast. COMPARISON: None provided. FINDINGS: LUNG BASES: The lung bases appear clear. No pleural effusions are seen. LIVER: Unremarkable. GALLBLADDER AND BILE DUCTS: The gallbladder appears within normal limits. No radioopaque gallstones are seen. No biliary ductal dilatation is evident. PANCREAS: Unremarkable. SPLEEN: Unremarkable. ADRENAL GLANDS: Unremarkable. KIDNEYS, URETERS, AND BLADDER: The kidneys appear within normal limits. There is no hydronephrosis or hydroureter. No urinary calculi are seen. STOMACH AND BOWEL: Unremarkable appearance of the stomach and bowel. No evidence of bowel obstruction. No evidence suggesting enteritis or colitis. APPENDIX: The appendix is distended, measuring up to 1 cm, with wall thickening and moderate periappendiceal inflammatory changes. No collection or perforation. PERITONEUM: Trace amount of fluid in the pelvis. No free air. LYMPH NODES: No lymphadenopathy is evident. REPRODUCTIVE: Unremarkable as visualized. VASCULATURE: No evidence of abdominal aortic aneurysm. BONES: No aggressive appearing osseous lesion. No acute osseous pathology evident. IMPRESSION: Acute appendicitis. No collection or perforation. /[place] DICTATED BY: JANES GROSS MD DATE: 05/02/252040 ELECTRONICALLY SIGNED BY: JANES GROSS MD DATE: 05/02/252040 ASSESSMENT: Appendicitis, POA PLAN: Appendicitis, POA: * On presentation vitals were -temp 97.9, Pulse-79, RR-16, BP-134/80, Spo2-98, Pertinent labs- WBC-11.7, Lipase-16, T. bilirubin 0.7, AST - 28, ALT-44, ALP- 61 * CT abdomen without contrast was ordered, results show finding so of acute appendicitis with no collection or perforation. * Patient is NPO. * Started on IV fluid maintenance therapy lactated Ringer's at 75 mL/HR. * Patient started on Levofloxacin (day2), metronidazole (day2) * Ordered Morphine 4mg PRN, Dilaudid 0.5mg PRN for analgesia * General surgery was consulted, patient scheduled for appendicectomy today. Supportive measures: GI prophylaxis with famotidine DVT prophylaxis with SCD's ATTESTATION BY PHYSICIAN I have seen and examined the patient. I reviewed the documentation, medical decision making, and treatment plan as noted by the resident physician above. I agree with the findings and plan of care. TATYANA DOWNS MD, SHAJI MD May 03, 2025 16:41
[2025-05-04] VITALS: BP 144/87; PULSE 100; RESP 20; TEMP 98.1
[2025-05-04 04:00] VITALS: BP 150/80; PULSE 76; RESP 16; TEMP 97.9
[2025-05-04 04:30] LABS: IMMATURE GRANULOCYTE ABSOLUTE 0.01 K/uL (0-1); NUCLEATED RED BLOOD CELLS 0.0 % (0.0-0.19); PLATELET COUNT (AUTO) 189 K/uL (130-400); RED BLOOD CELL COUNT(AUTO) 4.75 MIL/uL (4.50-6.20); RED CELL DISTRIBUTION WIDTH 11.6 % (11.0-15.5); WHITE BLOOD COUNT (AUTO) 7.0 K/uL (4.8-10.8)
[2025-05-04 04:54] LABS: CREATININE 1.0 mg/dL (0.5-1.3); GLOMERULAR FILTR. RATE CALC 99.0 mL/min (>90); GLUCOSE,RANDOM 107.0 mg/dL (70-105); SODIUM SERUM 138.0 mmol/L (136-145); UREA NITROGEN, BLOOD 9.0 mg/dL (7-18)
--- NOTE | 2025-05-04 05:34 | HMCIMG ---
EXAM: CR Chest, single view. CLINICAL HISTORY: Preprocedure COMPARISON: None FINDINGS: The lungs show no infiltrate or other acute findings. No pleural effusion or pneumothorax. The cardiomediastinal silhouette is within normal limits. No acute osseous abnormality. IMPRESSION: No acute cardiopulmonary pathology is evident. /[place]
[2025-05-04 08:00] VITALS: BP 122/66; PULSE 66; RESP 16; TEMP 97.8
[2025-05-04 10:00] VITALS: O2SAT 99
[2025-05-04 12:00] VITALS: BP 149/94; PULSE 74; RESP 17; TEMP 97.9
--- NOTE | 2025-05-04 14:27 | PN ---
[facility] PROGRESS NOTE Date of Service: May 04, 2025 Time of Service: 14:26 History of Present Illness Mr. Saldaña is a 39-year-old male who is a good historian of personal health Patient reports that he came to the emergency department with a chief complaint of abdominal pain. Onset was today. Location is right lower quadrant. Duration is on and off. Character is described as sharp. There was no allevi ating factors. Symptoms are aggravated with defecation. Patient denies any associated nausea, vomiting, chest pain, shortness and breath. Today in the emergency department CBC unremarkable, chemistry unremarkable, CT of abdomen and pelvis suggest appendicitis. Emergency room physician contacted general surgery service on-call who requested patient be admitted under hospitalist service. Plan is for surgical evaluation SUBJECTIVE: 05/03/25: Patient was seen and evaluated in room 124, Patient was alert, awake and orientedX3. Patient complaints of sharp right lower quadrant pain radiating to left lower quadrant pain. Pain is not relieved by defecations. Patient denies any nausea, vomiting, chest pain, shortness and breath. CT abdomen was ordered, which show findings of acute appendicitis. Pertinent labs- WBC-11.7, Lipase-16, T. bilirubin 0.7, AST - 28, ALT-44, ALP-61 05/04/25: Patient was seen and evaluated in room 124, Patient was alert, awake and orientedX3. Patient underwent Laparoscopic appendectomy yesterday. Patient reports of postop pain. Surgical incision sites were examined, which didn't show any signs of infection. Patient denies any nausea, vomiting, chest pain, shor tness and breath. Patient is on liquid diet. Pertinent labs- WBC-7.0. will continue to follow on general surgery recommendations. REVIEW OF SYSTEMS CONSTITUTIONAL: Denies fevers, chills, or night sweats. No unintentional weight loss reported. NEUROLOGICAL: Denies headache, amaurosis fugax, motor weakness, sensory deficit, vertigo/spinning sensation, gait abnormalities, or tremors. ENT: No hearing loss, otalgia, otorrhea, rhinitis, rhinorrhea, hoarseness, or sore throat. CARDIOVASCULAR: Denies any exertional angina, dyspnea on exertion, orthopnea, paroxysmal nocturnal dyspnea, palpitations, life-threatening arrhythmias, domenico ication. PULMONARY: Denies any shortness of breath, cough, phlegm/sputum, hemoptysis, pleuritic chest pain. SLEEP: Denies morning headaches, daytime somnolence or napping. Denies difficulty falling asleep, staying asleep, waking from sleep. Denies knowledge of snoring. GASTROINTESTINAL: Denies any type of dysphagia to either liquids or solids. Denies nausea, vomiting, pyrosis, early satiety, abdominal pain, diarrhea, constipation, or changes in stool consistency or caliber. Denies coffee-ground emesis, hematemesis, hematochezia, or melanotic stools. GENITOURINARY: Denies frequency, urgency, nocturia, hematuria or incontinence (Storage/Irritative symptoms.) Low urinary stream, straining to void, urinary intermittency or hesitancy, splitting of the voiding stream, terminal dribbling. ENDOCRINOLOGIC: Denies polyuria, polydipsia, polyphagia or heat/cold intolerances. HEMATOLOGIC: Denies thrombophilia/previous clots, or coagulopathy/bleeding disorders. ONCOLOGIC: Denies personal history of malignancy. DERMATOLOGIC: Denies rashes or pruritus. PSYCHIATRIC: Denies any suicidal or homicidal ideation. Denies hallucinations. PHYSICAL EXAM GENERAL APPEARANCE: The patient is awake, alert, and oriented, in no acute cardiopulmonary distress. NEUROLOGICAL: Cranial nerves II-XII grossly intact. Motor is 5/5 in bilateral upper and lower extremities proximal to distal. No sensory deficits. HEENT: Face is symmetric. Pupils are equal and reactive. Extraocular movements are intact. NECK: Supple. No JVD. No thyromegaly. No submental, submandibular, pre- /postauricular, occipital or supraclavicular lymphadenopathy. CHEST: Normal chest expansion. No Telemetry. LUNGS: Absence of any rales, rhonchi or any wheezing. CARDIOVASCULAR: Regular. S1 and S2 normal. No appreciable rubs, murmurs or gallops. ABDOMEN: Tenderness in right lower quadrant and left lower quadrant quadrant of abdomen, nondistended. There is no rebound, voluntary guarding, or rigidity. : Deferred. No Bray. EXTREMITIES: Non-edematous and not cyanotic. No clubbing. Good capillary refill. SKIN: No skin breakdown. Vital Signs (last 8hr) Date Time Temp Pulse Resp B/P (MAP) Pulse Ox O2 Delivery O2 Flow Rate FiO2 05/04/25 12:00 97.9 74 17 149/94 100 Room Air 05/04/25 08:00 97.9 66 16 122/66 98 Room Air LABS: Laboratory: Test 05/04/25 04:15 05/03/25 06:55 05/02/25 21:25 05/02/25 18:24 Range/Units White Blood Count 7.0 4.8-10.8 K/uL Red Blood Count 4.75 4.50-6.20 MIL/uL Hemoglobin 15.2 14.0-18.0 g/dL Hematocrit 44.2 42-54 % Mean Corpuscular Volume 93.1 79-99 fL Mean Corpuscular Hemoglobin 32.0 27.0-33.0 pg Mean Corpuscular Hemoglobin Concent 34.4 32.0-36.0 g/dL Red Cell Distribution Width 11.6 11.0-15.5 % Platelet Count 189 130-400 K/uL Mean Platelet Volume 11.3 H 7.5-10.5 fL Immature Granulocyte % (Auto) 0.1 0-1 % Neutrophils (%) (Auto) 87.4 H 40.0-77.0 % Lymphocytes (%) (Auto) 7.5 L 21.0-51.0 % Monocytes (%) (Auto) 4.9 3.0-13.0 % Eosinophils (%) (Auto) 0.0 0.0-8.0 % Basophils (%) (Auto) 0.1 0.0-5.0 % Neutrophils # (Auto) 6.1 1.8-7.7 K/uL Lymphocytes # (Auto) 0.5 L 1.0-4.8 K/uL Monocytes # (Auto) 0.3 0.1-1.0 K/uL Eosinophils # (Auto) 0.00 0.00-0.70 K/uL Basophils # (Auto) 0.01 0.00-0.20 K/uL Absolute Immature Granulocyte (auto 0.01 0-1 K/uL Nucleated Red Blood Cells 0.0 0.0-0.19 % Sodium Level 138 136-145 mmol/L Potassium Level 3.9 3.5-5.1 mmol/L Chloride Level 101 101-111 mmol/L Carbon Dioxide Level 26 21-32 mmol/L Blood Urea Nitrogen 9 7-18 mg/dL Creatinine 1.0 0.5-1.3 mg/dL Glomerular Filtration Rate Calc 99 >90 mL/min Random Glucose 107 H 70-105 mg/dL Total Calcium 9.3 8.5-10.1 mg/dL Free Thyroxine (T4) Direct 1.40 0.76-1.46 ng/dL Free Triiodothyronine (T3) pg/mL 2.80 2.18-3.98 pg/mL Prothrombin Time 11.2 9.6-11.6 SEC Prothromb Time International Ratio 1.06 0.85-1.15 Activated Partial Thromboplast Time 28.6 26.3-35.5 SEC Hemoglobin A1c 5.0 4.0-6.0 % Estimated Average Glucose (eAG) 97 70-126 mg/dL Phosphorus Level 2.7 2.5-4.9 mg/dL Magnesium Level 1.80 1.80-2.40 mg/dL Thyroid Stimulating Hormone (TSH) 4.26 H 0.36-3.74 uIU/mL Urine Color COLORLESS YELLOW Urine Appearance CLEAR CLEAR Urine pH 7.0 5.0-8.0 Urine Specific [place] 1.003 1.001-1.031 Urine Protein NEGATIVE NEGATIVE mg/dL Urine Glucose (UA) NEGATIVE NEGATIVE mg/dL Urine Ketones NEGATIVE NEGATIVE mg/dL Urine Occult Blood NEGATIVE NEGATIVE Urine Nitrate NEGATIVE NEGATIVE Urine Bilirubin NEGATIVE NEGATIVE mg/dL Urine Urobilinogen 0.2 0.2-1.0 mg/dL Urine Leukocyte Esterase NEGATIVE NEGATIVE [place]/uL White Cell Morphology Comment See comments Total Bilirubin 0.7 0.2-1.0 mg/dL Direct Bilirubin 0.2 0.0-0.3 mg/dL Aspartate Amino Transf (AST/SGOT) 28 10-37 U/L Alanine Aminotransferase (ALT/SGPT) 44 12-78 U/L Alkaline Phosphatase 61 50-136 U/L Total Protein 7.8 6.0-8.3 g/dL Albumin 4.2 3.5-5.0 g/dL Lipase 16 16-77 U/L Current Medications Medications (Trade) Dose Ordered Sig/Des Route PRN Reason Start Time Stop Time Status Last Admin Dose Admin Acetaminophen (TYLenol 325MG TAB) 650 mg Q6H PRN PO TEMPERATURE GREATER THAN 101.5 05/02/25 22:00 06/01/25 21:59 Famotidine (Pepcid 20mg Vial) 20 mg DAILY IV 05/03/25 09:00 06/02/25 08:59 05/04/25 08:01 20 MG Fentanyl Citrate (FENTanyl CITRate PF 50 MCG/ 1 ML 2ML VIAL) 25 mcg Q5MIN PRN IVP PAIN LEVEL 7 TO 10 05/03/25 16:00 05/03/25 16:18 DC 05/03/25 15:58 25 MCG Hydralazine HCl (APRESOLine 20MG INJ) 10 mg Q6H PRN IV For:SBP above 160;DBP above 90 05/02/25 22:00 06/01/25 21:59 Hydromorphone HCl (DiLAUDid 1MG INJ) 0.5 mg Q4H PRN IVP SEVERE PAIN (7-10) 05/03/25 11:30 05/08/25 11:29 05/04/25 13:30 0.5 MG Ketorolac Tromethamine (toRADol) 30 mg AD PRN IV PAIN LEVEL 1 TO 3 05/03/25 16:00 05/03/25 16:18 DC Lactated Ringer's 1,000 ml @ 75 mls/hr [id number] IV 05/02/25 22:00 06/01/25 21:59 05/03/25 22:08 75 MLS/HR Lactulose (Constulose 20gm/ 30ml Udcup) 20 gm BID PRN PO CONSTIPATION 05/02/25 22:00 06/01/25 21:59 Levofloxacin/ Dextrose 100 ml @ 100 mls/hr Q24H STAT IV 05/02/25 20:01 05/02/25 21:00 DC 05/02/25 20:59 100 MLS/HR Levofloxacin/ Dextrose (LEvaquIN 750 MG/ D5W 150 ML) 750 mg Q24H IV 05/02/25 22:00 05/02/25 23:27 DC Levofloxacin/ Dextrose (LEvaquIN 750 MG/ D5W 150 ML) 750 mg Q24H IV 05/03/25 20:00 05/13/25 19:59 05/03/25 20:10 750 MG Metoclopramide HCl (regLAN 10MG IV) 10 mg AD PRN IVP NAUSEA/VOMITING 05/03/25 16:00 05/03/25 16:00 DC 05/03/25 15:59 10 MG Metronidazole/ Sodium Chloride 100 ml @ 100 mls/hr Q8H IVPB 05/03/25 18:00 05/13/25 17:59 05/04/25 10:27 100 MLS/HR Metronidazole/ Sodium Chloride 100 ml @ 100 mls/hr Q8H6 IVPB 05/02/25 22:00 05/03/25 17:59 DC 05/03/25 05:15 100 MLS/HR Morphine Sulfate (morPHINE 2MG SYG) 2 mg AD PRN IVP PAIN LEVEL 4 TO 6 05/03/25 16:00 05/03/25 16:18 DC Morphine Sulfate (morPHINE 4MG SYG) 4 mg Q4H PRN IVP SEVERE PAIN (7-10) 05/02/25 22:00 05/03/25 11:25 DC 05/03/25 10:48 4 MG Naloxone HCl (NARcan 0.4mg/1 mL) 0.1 mg AD PRN IVP RESPIRATORY SYMPTOMS 05/03/25 16:00 05/03/25 16:18 DC Ondansetron HCl (zoFRAN 4MG INJ) 4 mg AD PRN IVP NAUSEA/VOMITING 05/03/25 16:00 05/03/25 16:18 DC Ondansetron HCl (zoFRAN 4MG INJ) 4 mg Q6H PRN IV NAUSEA/VOMITING 05/02/25 22:00 06/01/25 21:59 Promethazine HCl (Phenergan) 25 mg AD PRN IM NAUSEA/VOMITING 05/03/25 16:00 05/03/25 16:18 DC Sodium Chloride 1,000 ml @ 100 mls/hr Q10H STAT IV 05/02/25 19:59 05/03/25 05:58 DC 05/02/25 20:59 100 MLS/HR DIAGNOSTICS / RADIOLOGY: [ ] ASSESSMENT: Appendicitis, POA PLAN: Appendicitis, POA: * On presentation vitals were -temp 97.9, Pulse-79, RR-16, BP-134/80, Spo2-98, Pertinent labs- WBC-11.7, Lipase-16, T. bilirubin 0.7, AST - 28, ALT-44, ALP- 61 * CT abdomen without contrast was ordered, results show finding so of acute appendicitis with no collection or perforation. * Patient is on liquid diet. * Started on IV fluid maintenance therapy lactated Ringer's at 75 mL/HR. * Patient started on Levofloxacin (day3), metronidazole (day3) * Ordered Morphine 4mg PRN, Dilaudid 0.5mg PRN for analgesia * General surgery was consulted, patient underwent laparoscopic appendicectomy on 05/03/25. today is post op day 1 Supportive measures: GI prophylaxis with famotidine DVT prophylaxis with SCD's ATTESTATION BY PHYSICIAN I have seen and examined the patient. I reviewed the documentation, medical decision making, and treatment plan as noted by the resident physician above. I agree with the findings and plan of care. TATYANA DOWNS MD, SHAJI MD May 04, 2025 14:27
[2025-05-04 16:00] VITALS: BP 145/91; PULSE 78; RESP 18; TEMP 98.1
--- NOTE | 2025-05-04 17:19 | DS ---
Discharge Summary Hospital Course Summary: Mr. Goodwin is a 39-year-old male who presented to the emergency department with a chief complaint of abdominal pain, which began on the day of admission. The pain was described as sharp, intermittent, and located in the right lower quadrant, radiating to the left lower quadrant, and was aggravated by defecation. He denied associated symptoms such as nausea, vomiting, chest pain, or shortness of breath. On initial evaluation, he was alert, awake, and oriented, and provided a reliable history of his symptoms. On presentation, vital signs were stable: temperature 97.9F, pulse 79 beats per minute, respiratory rate 16 breaths per minute, blood pressure 134/80 mmHg, and oxygen saturation 98%. Laboratory studies revealed a mildly elevated white blood cell count (WBC 11.7), with otherwise unremarkable chemistry including lipase 16 U/L, total bilirubin 0.7 mg/dL, AST 28 U/L, ALT 44 U/L, and ALP 61 U/L. Given the clinical suspicion for appendicitis, a CT scan of the abdomen and pelvis without contrast was obtained, which demonstrated findings consistent with acute appendicitis, specifically without evidence of abscess, perforation.Following diagnosis, the general surgery service was consulted. The patient was admitted under the hospitalist service for preoperative management and further evaluation. In accordance with evidence-based guidelines, he was started on maintenance intravenous fluids (lactated Ringer's at 75 mL/hr) and was NPO. Antibiotics were initiated with levofloxacin and metronidazole. The patient underwent laparoscopic appendectomy on 05/04/25. On post-op day 1, he remained clinically stable, alert, and oriented, with no signs of surgical site infection at the incision sites. He reported expected postoperative pain, which was managed with the previously ordered analgesics. Laboratory studies showed normalization of the WBC to 7.0. Throughout his hospital stay, Mr. Goodwin tolerated advancement of his diet in postoperative period and was encouraged to mobilize early. Patient is being discharged with instructions to follow up with PCP in 3-4 days Follow up with General surgery Dr. Perez in 1-2 weeks Take meds for pain, Nausea as needed Keep incision site clean and dry Monitor for signs of infection like redness, warmth, swelling, foul swelling discharge at the incision sites Avoid greasy, heavy, very spicy foods Monitor for symptoms like fever, increasing abdominal pain, persistent vomiting, inability to tolerate fluids, shortness of breath, chest pain, persistent constipation or bloating that worsens and seek immediate medical attention in such scenario Electromechanical Equipment Tester(s): General Surgery consult was done by Dr. Perez Assessment: This is a 39-year-old male with right lower quadrant abdominal pain likely due to acute appendicitis. Plan: Patient has been admitted to the hospitalist service started on IV antibiotics and IV fluid resuscitation. I recommend laparoscopic possible open appendectomy. I discussed the procedure in detail with the patient. All questions were answered. The patient expressed understanding and agreement with the plan. Procedure(s): [facility] [address] [place], [place] [address] Operative Note Patient Name: Ramy Goodwin Unit Number: [id number] Date of : 1985 Patient Status: Admitted Inpatient Attending Doctor: Manish Cottrell MD Operative Note Operative Note: DATE OF PROCEDURE: 05/03/25 SURGEON: NEIL PEREZ DO RESEARCH PROGRAM INTERNSHIP: None ANESTHESIA: General ANESTHESIOLOGIST/[employer] PLANT SUPERINTENDENT: YESSICA Nielsen PREOPERATIVE DIAGNOSIS: Acute appendicitis POSTOPERATIVE DIAGNOSIS: Acute uncomplicated appendicitis SYNOPSIS: None PROCEDURE: Laparoscopic appendectomy ESTIMATED BLOOD LOSS: 5 cc INDICATIONS: This is a 39-year-old male with 24 hours of right lower quadrant abdominal pain. He had a mild leukocytosis and a CT scan showing an enlarged and indurated appendix with surrounding periappendiceal fat stranding consistent with acute appendicitis. On physical exam the patient was focally tender to palpation in the right lower quadrant. I recommended laparoscopic appendectomy. I discussed the procedure in detail with the patient in his significant other is at the bedside. All questions were answered. Both expressed understanding and agreement with the plan. DESCRIPTION OF PROCEDURE: Patient was placed on the operating table in the supine position with the left arm tucked. After being sedated and intubated by anesthesia the abdomen was prepped and draped in the usual sterile fashion. Patient is on antibiotics from the floor next dose not due for 3 hours. A transverse supraumbilical skin incision was made and dissection was carried down to the level of fascia. The fascia was grasped with 2 Denise clamps and elevated. The fascia was incised and the peritoneum was entered bluntly. A 12 mm balloon port was inserted into the peritoneal cavity and the abdomen was insufflated. The patient tolerated insufflation well. A laparoscopic camera was inserted into the abdomen and all 4 quadrants were inspected. No gross abnormalities apparent and no evidence of inadvertent injury apparent. Two 5 mm ports were then placed in the suprapubic region and left lower quadrant under direct visualization. The patient was placed in Trendelenburg position with right side up. The appendix was identified and found to be indurated and dilated with minimal adhesions to surrounding fat. The mesoappendix was divided using the Vuoyant vessel sealing device. The base of the appendix was transected using a blue load laparoscopic stapling device. The staple line was inspected and found to be hemostatic. The appendix was placed into a laparoscopic bag. A moderate amount of turbid fluid was suctioned from the pelvis. The 5 mm ports were removed under direct visualization and no ongoing bleeding evident. The appendix was removed with the 12 mm port and handed off for routine pathology. The fascia of the 12 mm port site was approximated using 0 Vicryl in a single [id number] suture. The skin was approximated using skin tutu. Wounds were dressed with gauze and tape. All instrument, needle, and sponge counts were correct at the end of the procedure. The patient tolerated the procedure well. The patient was aroused from sedation extubated and taken to the postanesthesia care unit in good condition. ANANEIL Dalal DO May 03, 2025 15:22 [place] [address] IMAGING REPORT Signed PATIENT: RAMY GOODWIN MR#: [id number] : 1985 SEX: M AGE: 39 LOCATION: 1MS ORDER 00 STATUS: ADM IN REPORT#: [id number] SERVICE 57 REASON: pre procedural ORDERING PHYSICIAN: ALANA MUÑOZ DRENCHER PROCEDURE: CXR1VW - CHEST 1VW EXAM: CR Chest, single view. CLINICAL HISTORY: Preprocedure COMPARISON: None FINDINGS: The lungs show no infiltrate or other acute findings. No pleural effusion or pneumothorax. The cardiomediastinal silhouette is within normal limits. No acute osseous abnormality. IMPRESSION: No acute cardiopulmonary pathology is evident. /[place] DICTATED BY: CARA SIFUENTES Jr., MD DATE: 05/04/25632 ELECTRONICALLY SIGNED BY: CARA SIFUENTES Jr., MD DATE: 05/04/25632 [place] [address] [place] [address] IMAGING REPORT Addendum PATIENT: RAMY GOODWIN MR#: [id number] : 1985 SEX: M AGE: 39 LOCATION: [facility] ORDER 17 STATUS: [facility] REPORT#: [id number] SERVICE 13 REASON: lower abdominal pain ORDERING PHYSICIAN: AGUSTIN LEACH CNP PROCEDURE: ABD PEL WO - CT ABDOMEN/PELVIS W/O CONTRAST ADDENDUM REPORT ADDENDUM: Results were shared by telephone at 08:52 PM EST on 05-02-2025 and acknowledged by Agustin Almonte /[place] EXAM: CT Abdomen and Pelvis Without IV contrast CLINICAL HISTORY: lower abdominal pain TECHNIQUE: Axial computed tomography images of the abdomen and pelvis without intravenous contrast. CONTRAST: No IV contrast. COMPARISON: None provided. FINDINGS: LUNG BASES: The lung bases appear clear. No pleural effusions are seen. LIVER: Unremarkable. GALLBLADDER AND BILE DUCTS: The gallbladder appears within normal limits. No radioopaque gallstones are seen. No biliary ductal dilatation is evident. PANCREAS: Unremarkable. SPLEEN: Unremarkable. ADRENAL GLANDS: Unremarkable. KIDNEYS, URETERS, AND BLADDER: The kidneys appear within normal limits. There is no hydronephrosis or hydroureter. No urinary calculi are seen. STOMACH AND BOWEL: Unremarkable appearance of the stomach and bowel. No evidence of bowel obstruction. No evidence suggesting enteritis or colitis. APPENDIX: The appendix is distended, measuring up to 1 cm, with wall thickening and moderate periappendiceal inflammatory changes. No collection or perforation. PERITONEUM: Trace amount of fluid in the pelvis. No free air. LYMPH NODES: No lymphadenopathy is evident. REPRODUCTIVE: Unremarkable as visualized. VASCULATURE: No evidence of abdominal aortic aneurysm. BONES: No aggressive appearing osseous lesion. No acute osseous pathology evident. IMPRESSION: Acute appendicitis. No collection or perforation. /[place] DICTATED BY: JANES GROSS MD DATE: 05/02/252052 ELECTRONICALLY SIGNED BY: DATE: EXAM: CT Abdomen and Pelvis Without IV contrast CLINICAL HISTORY: lower abdominal pain TECHNIQUE: Axial computed tomography images of the abdomen and pelvis without intravenous contrast. CONTRAST: No IV contrast. COMPARISON: None provided. FINDINGS: LUNG BASES: The lung bases appear clear. No pleural effusions are seen. LIVER: Unremarkable. GALLBLADDER AND BILE DUCTS: The gallbladder appears within normal limits. No radioopaque gallstones are seen. No biliary ductal dilatation is evident. PANCREAS: Unremarkable. SPLEEN: Unremarkable. ADRENAL GLANDS: Unremarkable. KIDNEYS, URETERS, AND BLADDER: The kidneys appear within normal limits. There is no hydronephrosis or hydroureter. No urinary calculi are seen. STOMACH AND BOWEL: Unremarkable appearance of the stomach and bowel. No evidence of bowel obstruction. No evidence suggesting enteritis or colitis. APPENDIX: The appendix is distended, measuring up to 1 cm, with wall thickening and moderate periappendiceal inflammatory changes. No collection or perforation. PERITONEUM: Trace amount of fluid in the pelvis. No free air. LYMPH NODES: No lymphadenopathy is evident. REPRODUCTIVE: Unremarkable as visualized. VASCULATURE: No evidence of abdominal aortic aneurysm. BONES: No aggressive appearing osseous lesion. No acute osseous pathology evident. IMPRESSION: Acute appendicitis. No collection or perforation. /[place] DICTATED BY: JANES GROSS MD DATE: 05/02/252040 ELECTRONICALLY SIGNED BY: JANES GROSS MD DATE: 05/02/252040 Assessment/Plan: ASSESSMENT: Appendicitis, POA Discharge Instructions: Follow up with PCP in 3-4 days Follow up with General surgery Dr. Perez in 1-2 weeks Take meds for pain, Nausea as needed Keep incision site clean and dry Monitor for signs of infection like redness, warmth, swelling, foul swelling discharge at the incision sites Avoid greasy, heavy, very spicy foods Monitor for symptoms like fever, increasing abdominal pain, persistent vomiting, inability to tolerate fluids, shortness of breath, chest pain, persistent constipation or bloating that worsens and seek immediate medical attention in such scenario Home Medications: No Active Prescriptions or Reported Meds Medication Profile: No Active Prescriptions or Reported Meds Time spent arranging discharge: 31-60 minutes KRISTIAN PERRY MD May 04, 2025 17:19
--- NOTE | 2025-05-04 18:56 | NUR ---
GAVE PATIENT DISCHARGE INSTRUCTIONS. PATIENT'S IV WAS REMOVED WITH CATHETER INTACT. PATIENT WAS TAKEN OUT VIA WHEELCHAIR TO A PRIVATE VEHICLE.
== END 2025-05-04 18:57 | disposition home or self-care (01) | DRG 399 ==
LOC: EDH 18:09 → EDHIP 20:27 → 1MS 05-03 02:12
PROVIDERS: ADMIT Internal Medicine; ATTEND Internal Medicine
PROC: 0DTJ4ZZ Resection of Appendix, Percutaneous Endoscopic Approach (ICD-10-PCS; principal; 2025-05-03 14:30)
DX: K35.80 Unspecified acute appendicitis (principal); Z51.5 Encounter for palliative care; I10 Essential (primary) hypertension; Z88.0 Allergy status to penicillin
CPT/HCPCS: 36415; 71045; 74176; 80048; 80076; 81003; 83036; 83690; 83735; 84100; 84439; 84443; 84481; 85025; 85610; 85730; 86850; 86900; 86901; 93005; 96372; 96374; 96375; 99285; A4344; G0378; J0330; J0500; J1100; J1171; J1956; J2003; J2250; J2270; J2405; J2704; J2710; J2765; J2795; J3010; J3490; J7030; J7120; A4213; A4216; A4222; A4223; A4600; A4649; A6206; C1769; J0665; J1308